=== PATIENT | female | born 1990 | race Caucasian/White ===

== ENCOUNTER 2021-12-07 11:11 | Emergency (ER) | payer SELFPAY ==
[~2021-12-07] VITALS: Ht 172.7 cm; Wt 74.8 kg
[2021-12-07 11:14] VITALS: BP 129/84
--- NOTE | 2021-12-07 12:15 | NUR ---
Patient discharged to home in stable condition. Written and verbal after care instructions given. Patient verbalizes understanding of instruction.
== END 2021-12-07 12:15 | disposition home or self-care (01) ==
LOC: ER 11:12
DX: R00.2 Palpitations (principal); Z98.890 Other specified postprocedural states